=== PATIENT | female | born 1945 | race Caucasian/White ===

== ENCOUNTER 2021-11-22 14:47 | Inpatient (IN) | payer MEDICARE ==
--- NOTE | 2021-11-22 15:21 | ED ---
General Adult HPI - General Chief complaint: Altered Mental Status Stated complaint: Altered Mental Status/Lethargic Time Seen by Provider: 11/22/21 15:04 Source: patient, family, RN notes reviewed Mode of arrival: wheelchair Limitations: altered mental status - History of Present Illness Initial comments: Patient is a pleasant 76-year-old female presenting to the emergency department with family concerns for increased fatigue and weakness as well as some mental status change. Patient has had symptoms progressed over the past few months, more so the past couple of weeks. Patient has been very shaky. Patient has decreased oral intake. Patient is only able to walk several steps. Getting to the bathroom is difficult. Patient is getting more confused and was not taking her medications appropriately. - Related Data Allergies Allergy/AdvReac Type Severity Reaction Status Date / Time No Known Allergies Allergy Verified 11/22/21 14:57 Review of Systems ROS Statement: Those systems with pertinent positive or pertinent negative responses have been documented in the HPI. ROS Other: All systems not noted in ROS Statement are negative. Constitutional: Denies: fever Eyes: Denies: eye pain ENT: Denies: ear pain Respiratory: Denies: cough Cardiovascular: Denies: chest pain Endocrine: Reports: fatigue (Patient has been sleeping a lot) Gastrointestinal: Denies: abdominal pain Genitourinary: Denies: dysuria Musculoskeletal: Denies: back pain Skin: Denies: rash Neurological: Reports: as per HPI, headache, weakness, confusion Past Medical History Past Medical History: Dementia, Diabetes Mellitus, Hyperlipidemia, Hypertension Additional Past Medical History / Comment(s): Type 2 Diabetes (no meds), water retention History of Any Multi-Drug Resistant Organisms: None Reported Past Surgical History: Appendectomy Past Psychological History: Anxiety Smoking Status: Never smoker Past Alcohol Use History: None Reported Past Drug Use History: None Reported General Exam Limitations: altered mental status General appearance: alert, in no apparent distress Head exam: Present: normocephalic Eye exam: Present: normal appearance, PERRL, EOMI ENT exam: Present: normal oropharynx Neck exam: Present: normal inspection Respiratory exam: Present: normal lung sounds bilaterally Cardiovascular Exam: Present: regular rate, normal rhythm GI/Abdominal exam: Present: soft. Absent: tenderness Neurological exam: Present: alert, CN II-XII intact Expanded Neurological exam: Present: protecting the airway Patient oriented to: Present: person, place. Absent: time Motor strength exam: RUE: 4, LUE: 4, RLE: 4, LLE: 4 Eye Response: (4) open spontaneously Motor Response: (6) obeys commands Verbal Response: (4) confused conversation Psychiatric exam: Present: normal affect, normal mood Skin exam: Present: normal color Course Vital Signs 11/22/21 14:48 Temperature 97.6 F Pulse Rate 65 Respiratory 16 Rate Blood Pressure 102/58 O2 Sat by Pulse 95 Oximetry - Reevaluation(s) Reevaluation #1: 11/22/21 17:12 No home meds listed to reconcile EKG Findings - EKG Comments: EKG Findings:: Sinus bradycardia 57. FL 136. QRS 112. QT 455. QTC 449. Left axis. Normal QRS. No acute ST change. Medical Decision Making - Medical Decision Making Patient reevaluated. Patient and family updated. Case discussed with Dr. Cummings, who will admit covering Dr. Strange. - Lab Data Result diagrams: 11/22/21 15:35 11/22/21 15:35 Lab Results 11/22/21 11/22/21 11/22/21 Range/Units 15:35 15:35 15:35 WBC 10.1 (3.8-10.6) k/uL RBC 4.53 (3.80-5.40) m/uL Hgb 13.6 (11.4-16.0) gm/dL Hct 41.8 (34.0-46.0) % MCV 92.2 (80.0-100.0) fL MCH 30.0 (25.0-35.0) pg MCHC 32.5 (31.0-37.0) g/dL RDW 14.4 (11.5-15.5) % Plt Count 403 (150-450) k/uL MPV 7.7 Neutrophils % 79 % Lymphocytes % 11 % Monocytes % 4 % Eosinophils % 2 % Basophils % 0 % Neutrophils # 8.1 H (1.3-7.7) k/uL Lymphocytes # 1.1 (1.0-4.8) k/uL Monocytes # 0.4 (0-1.0) k/uL Eosinophils # 0.2 (0-0.7) k/uL Basophils # 0.0 (0-0.2) k/uL PT 10.4 (9.0-12.0) sec INR 0.9 (<1.2) APTT 30.6 H (22.0-30.0) sec Sodium 127 L (137-145) mmol/L Potassium 4.5 (3.5-5.1) mmol/L Chloride 100 (98-107) mmol/L Carbon Dioxide 13 L (22-30) mmol/L Anion Gap 14 mmol/L BUN 70 H (7-17) mg/dL Creatinine 2.75 H (0.52-1.04) mg/dL Est GFR (CKD-EPI)AfAm 18 (>60 ml/min/1.73 sqM) Est GFR (CKD-EPI)NonAf 16 (>60 ml/min/1.73 sqM) Glucose 133 H (74-99) mg/dL Plasma Lactic Acid Stevan (0.7-2.0) mmol/L Calcium 9.0 (8.4-10.2) mg/dL Magnesium 2.1 (1.6-2.3) mg/dL Total Bilirubin 0.2 (0.2-1.3) mg/dL AST 25 (14-36) U/L ALT 18 (4-34) U/L Alkaline Phosphatase 162 H (38-126) U/L Troponin I (0.000-0.034) ng/mL Total Protein 7.3 (6.3-8.2) g/dL Albumin 4.1 (3.5-5.0) g/dL TSH 2.160 (0.465-4.680) mIU/L Free T4 1.21 (0.78-2.19) ng/dL Free T3 pg/mL 3.6 (2.8-5.3) pg/ml Coronavirus (PCR) (Not Detectd) 11/22/21 11/22/21 11/22/21 Range/Units 15:35 15:35 15:35 WBC (3.8-10.6) k/uL RBC (3.80-5.40) m/uL Hgb (11.4-16.0) gm/dL Hct (34.0-46.0) % MCV (80.0-100.0) fL MCH (25.0-35.0) pg MCHC (31.0-37.0) g/dL RDW (11.5-15.5) % Plt Count (150-450) k/uL MPV Neutrophils % % Lymphocytes % % Monocytes % % Eosinophils % % Basophils % % Neutrophils # (1.3-7.7) k/uL Lymphocytes # (1.0-4.8) k/uL Monocytes # (0-1.0) k/uL Eosinophils # (0-0.7) k/uL Basophils # (0-0.2) k/uL PT (9.0-12.0) sec INR (<1.2) APTT (22.0-30.0) sec Sodium (137-145) mmol/L Potassium (3.5-5.1) mmol/L Chloride (98-107) mmol/L Carbon Dioxide (22-30) mmol/L Anion Gap mmol/L BUN (7-17) mg/dL Creatinine (0.52-1.04) mg/dL Est GFR (CKD-EPI)AfAm (>60 ml/min/1.73 sqM) Est GFR (CKD-EPI)NonAf (>60 ml/min/1.73 sqM) Glucose (74-99) mg/dL Plasma Lactic Acid Stevan 0.7 (0.7-2.0) mmol/L Calcium (8.4-10.2) mg/dL Magnesium (1.6-2.3) mg/dL Total Bilirubin (0.2-1.3) mg/dL AST (14-36) U/L ALT (4-34) U/L Alkaline Phosphatase (38-126) U/L Troponin I <0.012 (0.000-0.034) ng/mL Total Protein (6.3-8.2) g/dL Albumin (3.5-5.0) g/dL TSH (0.465-4.680) mIU/L Free T4 (0.78-2.19) ng/dL Free T3 pg/mL (2.8-5.3) pg/ml Coronavirus (PCR) Not Detected (Not Detectd) - Radiology Data Radiology results: report reviewed (CT brain shows atrophy), image reviewed (Chest x-ray shows some fibrotic changes) Disposition Clinical Impression: Hyponatremia, Acute kidney injury, Altered mental status Disposition: ADMITTED IP TO THIS HOSP Is patient prescribed a controlled substance at d/c from ED?: No Referrals: Ilene Strange MD [Primary Care Provider] - 1-2 days Time of Disposition: 17:07
--- NOTE | 2021-11-22 16:09 | XR ---
EXAMINATION TYPE: XR chest 2V DATE OF EXAM: 11/22/2021 COMPARISON: NONE HISTORY: Weakness TECHNIQUE: 2 view FINDINGS: Heart is normal. Lungs are clear of consolidation. There is slight coarsening of interstiti al markings. Thoracic aorta is atheromatous. There is no pleural effusion. IMPRESSION: Mild fibrotic changes. Normal heart.
--- NOTE | 2021-11-22 16:18 | CT ---
EXAMINATION TYPE: CT brain wo con DATE OF EXAM: 11/22/2021 COMPARISON: None HISTORY: Weakness CT DLP: 1037.4 mGycm Automated exposure control for dose reduction was used. There is cerebral cortical atrophy. There is no mass effect or midline shift. No sign of intracranial hemorrhage. Calvarium is intact. There is previous sinus surgery noted. IMPRESSION: Cerebral atrophy. No acute intracranial abnormality.
[2021-11-22 16:23] LABS: INR 0.9 (<1.2); Partial Thromboplastin Time 30.6 sec (22.0-30.0); Prothrombin Time 10.4 sec (9.0-12.0)
[2021-11-22 16:24] LABS: Basophils % (A) 0 %; Eosinophils # (A) 0.2 k/uL (0-0.7); Eosinophils % (A) 2 %; HCT 41.8 % (34.0-46.0); HGB 13.6 gm/dL (11.4-16.0); Lymphocytes # (A) 1.1 k/uL (1.0-4.8); Lymphocytes % (A) 11 %; MCHC 32.5 g/dL (31.0-37.0); MCV 92.2 fL (80.0-100.0); Mean Platelet Volume 7.7; Monocytes # (A) 0.4 k/uL (0-1.0); Monocytes % (A) 4 %; Neutrophils # (A) 8.1 k/uL (1.3-7.7); Neutrophils % (A) 79 %; Platelet Count 403 k/uL (150-450); RBC 4.53 m/uL (3.80-5.40); RDW 14.4 % (11.5-15.5); WBC 10.1 k/uL (3.8-10.6)
[2021-11-22 16:35] LABS: Albumin 4.1 g/dL (3.5-5.0); Magnesium 2.1 mg/dL (1.6-2.3); Potassium 4.5 mmol/L (3.5-5.1); Total Bilirubin 0.2 mg/dL (0.2-1.3); Total Protein 7.3 g/dL (6.3-8.2)
[2021-11-22 16:50] LABS: T4, Free (Free Thyroxine) 1.21 ng/dL (0.78-2.19)
[2021-11-22] MEDS ORDERED: NALOXONE 0.4 MG/ML 1 ML VIAL IV PRN (17:10)
[2021-11-22] MEDS: SODIUM CHLORIDE 0.9% 1,000 ML IV SCH (17:51)
[2021-11-22 22:55] LABS: Appearance,Urine Cloudy (Clear); Bacteria,Urine Many /hpf; Bilirubin,Urine Negative (Negative); Blood,Urine Negative (Negative); Color,Urine Yellow; Glucose,Urine (UA) Negative (Negative); Hyaline Casts,Urine 46 /lpf (0-2); Ketones,Urine Negative (Negative); Leukocyte Esterase,Urine Large (Negative); Mucus,Urine Rare /hpf; Nitrite,Urine Negative (Negative); Protein,Urine Trace (Negative); RBC,Urine 7 /hpf (0-5); Specific Gravity,Urine 1.015 (1.001-1.035); Squamous Epithelial Cell,Urine 8 /hpf (0-4); Urobilinogen,Urine <2.0 mg/dL (<2.0); WBC,Urine 45 /hpf (0-5)
[2021-11-23] MEDS: SODIUM CHLORIDE 0.9% 1,000 ML IV SCH ×3 (06:38→20:55)
[2021-11-23] MEDS ORDERED: ALBUTEROL NEBULIZED 2.5 MG/3 ML INHALATION PRN (08:19)
[2021-11-23] MEDS ORDERED: DONEPEZIL 5 MG TAB PO SCH (09:00)
[2021-11-23] MEDS: CHOLECALCIFEROL 25 MCG (1000 IU) TABLET PO SCH (09:36)
[2021-11-23] MEDS: ASPIRIN 81 MG PO SCH (09:36)
[2021-11-23] MEDS: CYANOCOBALAMIN 500 MCG TAB PO SCH (09:36)
[2021-11-23] MEDS: MULTIVITAMINS, THERA 1 EACH TAB PO SCH (09:36)
[2021-11-23] MEDS: ASCORBIC ACID 500 MG TAB PO SCH (09:36)
[2021-11-23 10:21] LABS: Calcium 8.5 mg/dL (8.4-10.2)
--- NOTE | 2021-11-23 10:35 | P.CNNES ---
History of Present Illness Consult date: 11/23/21 Requesting physician: Casey Kumar Reason for Consult: altered mental status. History of Present Illness: This is a 76-year-old woman with history of dementia, diabetes, hypertension, hyperlipidemia who presented emergency department by family because increased poor appetite, fatigue, generalized weakness and worsening of mentation. History is obtained from the patient's daughter was at bedside. Per the daughter she stated that the patient has been having memory loss and its short- term memory for last 3 years but in the last 6 month at worse and even more worse in last 2-3 weeks. The patient has not been eating in the last 2-3 weeks, generalized weakness. According to the daughter the patient is seeing a reyes rologist over at [facility] (over at [place], [place]) and had a recent MRI of the brain and the last 2 weeks and EEG in last 2-3 weeks and was told MRI Brain is unremarkable that she recalls and EEG was mild to moderate decrease activity but no seizure. Per the daughter the patient does not have any history of stroke or seizures. Patient resides by herself but her family regularly visits the patient. Some of the workup in the hospital consisted of: Patient has been afebrile during this admission. White blood cells 10.1 thousand. Sodium is 127, creatinine is 2.75. BUN is 70. Calcium is 9.0, magnesium 2.1. TSH is 2.160 and the free T4 is 1.21. Urinalysis it's cloudy, low leukocyte esterases large, wb 45, bacteria many. CT Brain is reported as Cerebral atrophy. No acute intracranial abnormality. I personally reviewed the CT of the head and the patient does not have any acute or subacute ischemia or interpretable hemorrhage that is appreciable. Review of Systems Review of system: The 12 point system was reviewed and apparent positive and ne gative per HPI. Past Medical History Past Medical History: COPD, Dementia, Hyperlipidemia, Hypertension Additional Past Medical History / Comment(s): water retention History of Any Multi-Drug Resistant Organisms: None Reported Past Surgical History: Appendectomy, Section Past Anesthesia/Blood Transfusion Reactions: No Reported Reaction Past Psychological History: Anxiety, Depression Smoking Status: Never smoker Past Alcohol Use History: None Reported Additional Past Alcohol Use History / Comment(s): Daughter states patient started smoking when she was 16 and quit about 20-21 years ago Past Drug Use History: None Reported Medications and Allergies Home Medications Medication Instructions Recorded Confirmed Type Albuterol Inhaler [Ventolin Hfa 2 puff INHALATION RT-QID PRN 11/22/21 11/22/21 History Inhaler] Ascorbic Acid [Vitamin C] 500 mg PO DAILY 11/22/21 11/22/21 History Aspirin EC [Ecotrin Low Dose] 81 mg PO DAILY 11/22/21 11/22/21 History Cholecalciferol [Vitamin D3 (25 25 mcg PO DAILY 11/22/21 11/22/21 History Mcg = 1000 Iu)] Cyanocobalamin [Vitamin B-12] 500 mcg PO DAILY 11/22/21 11/22/21 History Donepezil [Aricept] 5 mg PO BID 11/22/21 11/22/21 History Furosemide [Lasix] 20 mg PO DAILY 11/22/21 11/22/21 History Melatonin 10 mg PO HS 11/22/21 11/22/21 History Metoprolol Succinate [Toprol XL] 25 mg PO HS 11/22/21 11/22/21 History Multivit-Min/Iron/Folic/Lutein 1 tab PO DAILY 11/22/21 11/22/21 History [Centrum Silver Women Tablet] Sertraline HCl [Zoloft] 150 mg PO DAILY@1700 11/22/21 11/22/21 History Simvastatin 40 mg PO HS 11/22/21 11/22/21 History hydrALAZINE HCL [Apresoline] 100 mg PO BID 11/22/21 11/22/21 History lisinopriL [Zestril] 20 mg PO BID 11/22/21 11/22/21 History Allergies Allergy/AdvReac Type Severity Reaction Status Date / Time No Known Allergies Allergy Verified 11/22/21 18:09 Physical Examination - Vital Signs Vital Signs: Vital Signs Temp Pulse Pulse Resp BP BP Pulse Ox 11/23/21 04:00 97.6 F 74 20 105/61 97 11/23/21 00:00 98.6 F 61 20 96/57 94 L 11/22/21 20:00 97.4 F L 60 18 103/60 95 11/22/21 18:37 97.7 F 64 16 102/52 94 L 11/22/21 14:48 97.6 F 65 16 102/58 95 Intake and Output 11/22/21 11/23/2122 22:59 06:59 14:59 Intake Total 600 900 120 Output Total 300 Balance 600 600 120 Intake: Intake, IV Titration 900 Amount Sodium Chloride 0.9% 1, 900 000 ml @ 75 mls/hr IV . [id number] [facility] Rx#:[id number] Oral 600 120 Output: Emesis 300 Other: # Voids 1 3 # Bowel Movements 1 6 Weight 79.9 kg GENERAL: The patient is lying in bed and is not in acute distress. CHEST: The heart rate is regular rate rhythm. No murmurs to auscultation. No carotid bruit bilaterally----. LUNG: Clear to auscultation bilaterally no wheezing noted throughout. Not labored breathing. ABDOMEN/GI: Bowel sounds present in all 4 quadrants. No tenderness to palpation throughout. NEUROLOGICAL: Higher mental function: Patient was sleeping prior to examination. She woke-up and was still in sleepy mode. Patient is oriented to self. She initially stated she was at home and repeated again but with orientation she stated "Am I in the hospital". She stated she did not know month or year. She is able to name objects (pen, watch, phone). She is following simple commands. No aphasia and no neglect. Cranial nerves: The pupils are round, equal and reactive to light and accommodation. Visual connelly are full to confrontation throughout. Extraocular movement is intact no nystagmus is noted. Facial sensation is normal to touch throughout. The facial strength is normal throughout. Hearing is mildly to moderately decreased bilaterally to hand rub. Tongue is midline and moved [id number] without any difficulty. No dysarthria is noted. Shoulder shrug is normal bilaterally. Motor: The strength is limited because of her cooperation but moving all above gravity and no focality noted. Normal tone and bulk. Cerebellum: Normal finger to nose bilaterally. Sensation: Sensation is normal to touch throughout. Reflexes (right/left): 1+ Plantars are downgoing bilaterally. Results - Laboratory Findings CBC and BMP: 11/22/21 15:35 11/22/21 15:35 Abnormal Lab Findings: Abnormal Labs 11/22/21 11/22/21 11/22/21 15:35 15:35 15:35 Neutrophils # 8.1 H APTT 30.6 H Sodium 127 L Carbon Dioxide 13 L BUN 70 H Creatinine 2.75 H Glucose 133 H Alkaline Phosphatase 162 H Urine Appearance Urine Protein Ur Leukocyte Esterase Urine RBC Urine WBC Ur Squamous Epith Cells Urine Bacteria Hyaline Casts Urine Mucus 11/22/21 22:20 Neutrophils # APTT Sodium Carbon Dioxide BUN Creatinine Glucose Alkaline Phosphatase Urine Appearance Cloudy H Urine Protein Trace H Ur Leukocyte Esterase Large H Urine RBC 7 H Urine WBC 45 H Ur Squamous Epith Cells 8 H Urine Bacteria Many H Hyaline Casts 46 H Urine Mucus Rare H Assessment and Plan Assessment: Altered mental status due to multiple factorial: Metabolic encephalopathy, underlying urinary tract infection and due to her underlying dementia Dementia seems short-term for the last 3 years but worse in the last 6 months. Lynette Acute urinary tract infection Kidney insufficiency and unsure if the patient has acute on chronic Failure to thrive for past 3 weeks Diabetes mellitus History of hypertension Plan: I ordered vitamin B12 and folate level. As well as ammonia level Patient had a recent MRI of the brain and an EEG at by her neurologist ([facility]) in the last 2-3 weeks. Therefore I will not repeat them and the patient daughter is in agreement. Recommend a neuropsych evaluation as an outpatient Urine culture is ordered We'll defer the rest of the medical management to the primary team Upon discharge patient to follow-up with her neurology team ([facility]) for further evaluation. The plan is discussed with her daughter who is at bedside. Thank you for the consultation. Amadeo England M.D. Neuro-Hospitalist Time with Patient: Greater than 30
[2021-11-23] MEDS: LOPERAMIDE 2 MG CAP PO PRN ×2 (16:30→21:07)
[2021-11-23] MEDS ORDERED: SERTRALINE 100 MG TAB PO SCH (17:00)
[2021-11-23] MEDS: ACETAMINOPHEN TAB 500 MG TAB PO PRN (17:46)
[2021-11-23] MEDS: ONDANSETRON 4 MG/2 ML VIAL IVP PRN (21:07)
[2021-11-23] MEDS: METOPROLOL SUCCINATE (ER) 25 MG TAB.ER.24H PO SCH (21:07)
[2021-11-23] MEDS: ATORVASTATIN 20 MG TAB PO SCH (21:07)
--- NOTE | 2021-11-23 21:58 | P.HPIM ---
History of Present Illness H&P Date: 11/23/21 Chief Complaint: Increased weakness This is a 76-year-old patient who follows with Ilene Strange. Chronic stable medical conditions include COPD, dementia, hypertension, hyperlipidemia. Anxiety depression. History is obtained by the daughter the bedside. Patient does live alone. His ex-smoker. Patient is helped by her daughters. I'll recently is patient is becoming increasingly unsteady. Appetite has been going down. Rather significantly. Patient's memory has been getting worse. No fever and chills reported. No urinary symptoms. Patient will answer occasional simple questions. As per the daughter patient [facility] EEG. There were reported to be unremarkable. Review of systems: GEN.: Weak diet decrease appetite EYES: None HEENT: None NECK: None RESPIRATORY: None CARDIOVASCULAR: None GASTROINTESTINAL: None GENITOURINARY: None MUSCULOSKELETAL: Joint pains LYMPHATICS: None HEMATOLOGICAL: None PSYCHIATRY: Increased forgetfulness NEUROLOGICAL: Generalized weakness Past medical history to include: COPD, dementia, hypertension, hyperlipidemia, anxiety depression Social history: Patient smoked for about 40 years stopped about 20 years ago. Lives alone. No alcohol. Patient is but from her . The latter still and couldn't touch with the patient communicates with her Physical examination: VITAL SIGNS: 97.6, 65, 16, 96/57, 94% room air GENERAL: BMI 32.2, laying in bed with lethargic EYES: Pupils equal. Conjunctiva normal. HEENT: External appearance of nose and ears normal, oral cavity dry mucous membrane. NECK: JVD not raised; masses not palpable. HEART: First and second heart sounds are normal; no edema. LUNGS: Respiratory rate normal; decreased breath sound. ABDOMEN: Soft, nontender, liver spleen not palpable, no masses palpable. PSYCH: Mood and affect normal. Patient is she thinks she is at home. She thinks is 19 78, and thinks it this falll. MUSCULOSKELETAL:No Clubbing/cyanosis;muscles-grossly intact. Evidence of OA NEUROLOGICAL: Cranial nerves grossly intact; no facial asymmetry, power and sensation grossly intact. LYMPHATICS: No lymph nodes palpable in the axilla and neck INVESTIGATIONS, reviewed in the clinical context: White count 10.1 hemoglobin 13.6 platelets 403 sodium 127 potassium 4.5 bicarb 13 BUN 70 creatinine 2.75 bicarb 11 UA positive for leukoesterase, WBC COVID 19: Negative EKG tracing personally reviewed by me-normal sinus rhythm. Rate 57 Chest x-ray film personally reviewed by me-james perez. Some chronic changes. CT brain: Cerebral atrophy Assessment and plan: -Acute metabolic encephalopathy/delirium. From acute kidney injury. And medication setting of the same. Note patient has significant renal failure. Zoloft at this point is contribution to the confusion -Acute kidney injury possibly combination of prerenal and ATN. IV fluids. Stop Zestril. Stop Lasix. -Major cognitive impairment from likely of Alzheimer's dementia At this stage rolloff Aricept 90 documented including side effects of any. Will DC the same. -Acute medical debility from poor oral intake. -Vitamin B12 deficiency B12 500 g a day -Hyperlipidemia Because of current weakness hold off Zocor -Hypotension from volume loss IV fluids -Essential hypertension Currently blood pressure running low. Hold off antihypertensive including hydralazine and Zestril. We'll continue Toprol-XL -Acute UTI with cystitis IV ceftriaxone Hold off antihypertensive. Continue Toprol-XL. IV fluids. DC Lasix. The 6 Zestril. Hold Aricept. Hold Zoloft. Care was discussed at length with the patient's daughter the bedside questions answered. Given the complexity and severity of patient's condition expect the patient to be in the hospital at least for 2 overnights Past Medical History Past Medical History: COPD, Dementia, Hyperlipidemia, Hypertension Additional Past Medical History / Comment(s): water retention History of Any Multi-Drug Resistant Organisms: None Reported Past Surgical History: Appendectomy, Section Past Anesthesia/Blood Transfusion Reactions: No Reported Reaction Past Psychological History: Anxiety, Depression Smoking Status: Never smoker Past Alcohol Use History: None Reported Additional Past Alcohol Use History / Comment(s): Daughter states patient started smoking when she was 16 and quit about 20-21 years ago Past Drug Use History: None Reported Medications and Allergies Home Medications Medication Instructions Recorded Confirmed Type Albuterol Inhaler [Ventolin Hfa 2 puff INHALATION RT-QID PRN 11/22/21 11/22/21 History Inhaler] Ascorbic Acid [Vitamin C] 500 mg PO DAILY 11/22/21 11/22/21 History Aspirin EC [Ecotrin Low Dose] 81 mg PO DAILY 11/22/21 11/22/21 History Cholecalciferol [Vitamin D3 (25 25 mcg PO DAILY 11/22/21 11/22/21 History Mcg = 1000 Iu)] Cyanocobalamin [Vitamin B-12] 500 mcg PO DAILY 11/22/21 11/22/21 History Donepezil [Aricept] 5 mg PO BID 11/22/21 11/22/21 History Furosemide [Lasix] 20 mg PO DAILY 11/22/21 11/22/21 History Melatonin 10 mg PO HS 11/22/21 11/22/21 History Metoprolol Succinate [Toprol XL] 25 mg PO HS 11/22/21 11/22/21 History Multivit-Min/Iron/Folic/Lutein 1 tab PO DAILY 11/22/21 11/22/21 History [Centrum Silver Women Tablet] Sertraline HCl [Zoloft] 150 mg PO DAILY@1700 11/22/21 11/22/21 History Simvastatin 40 mg PO HS 11/22/21 11/22/21 History hydrALAZINE HCL [Apresoline] 100 mg PO BID 11/22/21 11/22/21 History lisinopriL [Zestril] 20 mg PO BID 11/22/21 11/22/21 History Allergies Allergy/AdvReac Type Severity Reaction Status Date / Time No Known Allergies Allergy Verified 11/22/21 18:09 Physical Exam Vitals: Vital Signs Temp Pulse Pulse Resp BP BP Pulse Ox 11/23/21 04:00 97.6 F 74 20 105/61 97 11/23/21 00:00 98.6 F 61 20 96/57 94 L 11/22/21 20:00 97.4 F L 60 18 103/60 95 11/22/21 18:37 97.7 F 64 16 102/52 94 L 11/22/21 14:48 97.6 F 65 16 102/58 95 Intake and Output 11/22/21 11/23/21 11/23/21 22:59 06:59 14:59 Intake Total 600 900 120 Output Total 300 Balance 600 600 120 Intake: Intake, IV Titration 900 Amount Sodium Chloride 0.9% 1, 900 000 ml @ 75 mls/hr IV . [id number] Rx#:[id number] Oral 600 120 Output: Emesis 300 Other: # Voids 1 3 # Bowel Movements 1 6 Weight 79.9 kg Results CBC & Chem 7: 06/05/22 15:35 11/23/21 09:01 Labs: Abnormal Lab Results - Last 24 Hours (Table) 11/22/21 11/22/21 11/22/21 Range/Units 15:35 15:35 15:35 Neutrophils # 8.1 H (1.3-7.7) k/uL APTT 30.6 H (22.0-30.0) sec Sodium 127 L (137-145) mmol/L Carbon Dioxide 13 L (22-30) mmol/L BUN 70 H (7-17) mg/dL Creatinine 2.75 H (0.52-1.04) mg/dL Glucose 133 H (74-99) mg/dL Alkaline Phosphatase 162 H (38-126) U/L Urine Appearance (Clear) Urine Protein (Negative) Ur Leukocyte Esterase (Negative) Urine RBC (0-5) /hpf Urine WBC (0-5) /hpf Ur Squamous Epith Cells (0-4) /hpf Urine Bacteria (None) /hpf Hyaline Casts (0-2) /lpf Urine Mucus (None) /hpf 11/22/21 11/23/21 Range/Units 22:20 09:01 Neutrophils # (1.3-7.7) k/uL APTT (22.0-30.0) sec Sodium 131 L (137-145) mmol/L Carbon Dioxide 11 L (22-30) mmol/L BUN 72 H (7-17) mg/dL Creatinine 2.14 H (0.52-1.04) mg/dL Glucose 135 H (74-99) mg/dL Alkaline Phosphatase (38-126) U/L Urine Appearance Cloudy H (Clear) Urine Protein Trace H (Negative) Ur Leukocyte Esterase Large H (Negative) Urine RBC 7 H (0-5) /hpf Urine WBC 45 H (0-5) /hpf Ur Squamous Epith Cells 8 H (0-4) /hpf Urine Bacteria Many H (None) /hpf Hyaline Casts 46 H (0-2) /lpf Urine Mucus Rare H (None) /hpf Microbiology - Last 24 Hours (Table) 11/22/21 22:20 Urine Culture - Preliminary Urine,Voided Thrombosis Risk Factor Assmnt - Choose All That Apply Any of the Below Risk Factors Present?: Yes Each Factor Represents 1 point: Abnormal pulmonary function (COPD), Obesity (BMI >25), Swollen legs (current) Other Risk Factors: Yes Other congenital or acquired thrombophilia - If yes, enter type in comment: No Thrombosis Risk Factor Assessment Total Risk Factor Score: 3 Thrombosis Risk Factor Assessment Level: Moderate Risk
[2021-11-24] MEDS: DEXTROSE 5% IN WATER 1,000 ML with SODIUM BICARB (1 MEQ/ML) 100 ML IV SCH ×3 (00:10→21:57)
[2021-11-24] MEDS: ACETAMINOPHEN TAB 500 MG TAB PO PRN ×4 (01:01→23:13)
[2021-11-24] MEDS: ASPIRIN 81 MG PO SCH (09:19)
[2021-11-24] MEDS: CYANOCOBALAMIN 500 MCG TAB PO SCH (09:19)
[2021-11-24] MEDS: CHOLECALCIFEROL 25 MCG (1000 IU) TABLET PO SCH (09:19)
[2021-11-24] MEDS: MULTIVITAMINS, THERA 1 EACH TAB PO SCH (09:19)
[2021-11-24] MEDS: ASCORBIC ACID 500 MG TAB PO SCH (09:19)
[2021-11-24] MEDS: LOPERAMIDE 2 MG CAP PO PRN ×2 (09:23→23:13)
--- NOTE | 2021-11-24 12:14 | P.PN ---
Subjective Progress Note Date: 11/24/21 The patient is accompanied with her daughter and feels patient is doing better today compared to yesterday in regarding to her mentation. Otherwise denies any new neurological issues. Objective - Vital Signs Vital signs: Vital Signs Temp 97.8 F 11/24/21 08:10 Pulse 79 11/24/21 08:10 Resp 18 11/24/21 08:10 BP 99/58 11/24/21 08:10 Pulse Ox 97 11/24/21 08:10 FiO2 Intake & Output 11/23/21 11/24/21 11/24/21 18:59 06:59 18:59 Intake Total 2160 1340 Balance 2160 1340 Weight 80.5 kg Intake: IV 1580 Invasive Line 1 20 Sodium Chloride 0.9% 1, 1560 000 ml @ 130 mls/hr IV . Q7H42M [facility]A Rx#:[id number] Intake, IV Titration 1220 Amount Dextrose 5% in Water 1, 700 000 ml @ 100 mls/hr IV . Q11H K[facility]ILA with Sodium Bicarb (1 Meq/ml) 100 ml Rx#:[id number] Sodium Chloride 0.9% 1, 520 000 ml @ 130 mls/hr IV . Q7H42M KAMLIA Rx#:[id number] Oral 580 120 Other: Voiding Method Toilet Toilet Bedside Commode # Voids 2 # Bowel Movements 14 2 - Exam GENERAL: The patient is lying in bed and is not in acute distress. NEUROLOGICAL: Higher mental function: Patient is oriented to self. She stated she is in the hospital. She does not know time. She seems more responsive today compared to yesterday. She is able to name objects (pen, watch, phone). She is following simple commands. No aphasia and no neglect. Cranial nerves: The pupils are round, equal and reactive to light and accommodation. Visual connelly are full to confrontation throughout. Extraocular movement is intact no nystagmus is noted. Facial sensation is normal to touch throughout. The facial strength is normal throughout. Tongue is midline and moved [id number] without any difficulty. No dysarthria is noted. Shoulder shrug is normal bilaterally. Motor: The strength is moving all above gravity and no focality noted. Normal tone and bulk. Cerebellum: Normal finger to nose bilaterally. Sensation: Sensation is normal to touch throughout. Reflexes (right/left): 1+ Plantars are downgoing bilaterally. Some of the workup in the hospital consisted of: White blood cells 10.1 thousand. Sodium is 127, creatinine is 2.75. BUN is 70. Calcium is 9.0, magnesium 2.1. Urinalysis it's cloudy, low leukocyte esterases large, wb 45, bacteria many. CT Brain is reported as Cerebral atrophy. No acute intracranial abnormality. I personally reviewed the CT of the head and the patient does not have any acute or subacute ischemia or interpretable hemorrhage that is appreciable. Vitamin B12: 1575 Serum folate >20 Ammonia <9 TSH is 2.160 and the free T4 is 1.21. - Labs CBC & Chem 7: 11/22/21 15:35 11/23/21 09:01 Labs: Abnormal Lab Results - Last 24 Hours (Table) 11/23/21 Range/Units 12:04 Vitamin B12 1575.0 H (200.0-944.0) pg/mL Microbiology - Last 24 Hours (Table) 11/22/21 22:20 Urine Culture - Preliminary Urine,Voided Assessment and Plan Assessment: Altered mental status due to multiple factorial: Metabolic encephalopathy, underlying urinary tract infection and due to her underlying dementia--mentation improving Dementia seems short-term for the last 3 years but worse in the last 6 months. Lynette Acute urinary tract infection Kidney insufficiency and unsure if the patient has acute on chronic Failure to thrive for past 3 weeks Diabetes mellitus History of hypertension Plan: Patient had a recent MRI of the brain and an EEG at by her neurologist ([facility]) in the last 2-3 weeks. Therefore I will not repeat them and the patient daughter is in agreement. Recommend a neuropsych evaluation as an outpatient We'll defer the rest of the medical management to the primary team Upon discharge patient to follow-up with her neurology team ([facility]) for further evaluation. The plan is discussed with patient and her daughter who is at bedside. Patient is clear for discharge from neurological perspective. Will sign off. Please reconsult if needed. Amadeo England M.D. Neuro-Hospitalist Time with Patient: Less than 30
--- NOTE | 2021-11-24 18:11 | P.PN ---
Progress Note - Text Progress Note Date: 11/24/21 Chief Complaint: Increased weakness This is a 76-year-old patient who follows with Ilene Strange. Chronic stable medical conditions include COPD, dementia, hypertension, hyperlipidemia. Anxiety depression. History is obtained by the daughter the bedside. Patient does live alone. His ex-smoker. Patient is helped by her daughters. I'll recently is patient is becoming increasingly unsteady. Appetite has been going down. Rather significantly. Patient's memory has been getting worse. No fever and chills reported. No urinary symptoms. Patient will answer occasional simple questions. As per the daughter patient [facility] EEG. There were reported to be unremarkable. Admitted with acute metabolic encephalopathy delirium, acute kidney injury, severe metabolic acidosis. IV bicarbonate drip. Lasix RADHA inhibitor held. IV fluids. November 24: Patient more awake today. Getting IV bicarbonate drip. Answering questions. Daughter the bedside. Eating about 50%. Discussed with daughter. Active Medications Acetaminophen (Acetaminophen Tab 500 Mg Tab) 500 mg PO Q6HR PRN PRN Reason: Fever and/ or Pain Last Admin: 11/24/21 09:23 Dose: 500 mg Albuterol Sulfate (Albuterol Nebulized 2.5 Mg/3 Ml) 2.5 mg INHALATION RT-QID PRN PRN Reason: Shortness Of Breath Ascorbic Acid (Ascorbic Acid 500 Mg Tab) 500 mg PO DAILY [facility] Last Admin: 11/24/21 09:19 Dose: 500 mg Aspirin (Aspirin 81 Mg) 81 mg PO DAILY [facility] Last Admin: 11/24/21 09:19 Dose: 81 mg Atorvastatin Calcium (Atorvastatin 20 Mg Tab) 20 mg PO HS [facility] Last Admin: 11/23/21 21:07 Dose: 20 mg Cholecalciferol (Cholecalciferol 25 Mcg (1000 Iu) Tablet) 25 mcg PO DAILY [facility] Last Admin: 11/24/21 09:19 Dose: 25 mcg Ceftriaxone Sodium 1 gm/ (Sodium Chloride) 50 mls @ 100 mls/hr IVPB Q24HR KAMILA; Protocol Last Admin: 11/24/21 09:19 Dose: 100 mls/hr Sodium Bicarbonate 100 ml/ (Dextrose/Water) 1,100 mls @ 100 mls/hr IV .Q11H [facility]A Last Admin: 11/24/21 09:30 Dose: 100 mls/hr Loperamide HCl (Loperamide 2 Mg Cap) 2 mg PO QID PRN PRN Reason: Diarrhea Last Admin: 11/24/21 09:23 Dose: 2 mg Metoprolol Succinate (Metoprolol Succinate (Er) 25 Mg Tab.Er.24h) 25 mg PO HS [facility] Last Admin: 11/23/21 21:07 Dose: 25 mg Multivitamins (Multivitamins, Thera 1 Each Tab) 1 each PO DAILY [facility] Last Admin: 11/24/21 09:19 Dose: 1 each Naloxone HCl (Naloxone 0.4 Mg/Ml 1 Ml Vial) 0.2 mg IV Q2M PRN PRN Reason: Opioid Reversal Ondansetron HCl (Ondansetron 4 Mg/2 Ml Vial) 4 mg IVP Q6HR PRN PRN Reason: Nausea And Vomiting Last Admin: 11/23/21 21:07 Dose: 4 mg Past medical history to include: COPD, dementia, hypertension, hyperlipidemia, anxiety depression Social history: Patient smoked for about 40 years stopped about 20 years ago. Lives alone. No alcohol. Patient is but from her . The latter still and couldn't touch with the patient communicates with her Physical examination: VITAL SIGNS: 97.6, 53, 18, 94/59, 96% room air GENERAL: More awake and communicative EYES: Pupils equal. Conjunctiva normal. HEENT: External appearance of nose and ears normal, oral cavity dry mucous membrane. NECK: JVD not raised; masses not palpable. HEART: First and second heart sounds are normal; no edema. LUNGS: Respiratory rate normal; decreased breath sound. ABDOMEN: Soft, nontender, liver spleen not palpable, no masses palpable. PSYCH: Mood and affect normal. Answering some simple questions. MUSCULOSKELETAL:No Clubbing/cyanosis;muscles-grossly intact. Evidence of OA INVESTIGATIONS, reviewed in the clinical context: White count 10.1 hemoglobin 13.6 platelets 403 sodium 127 potassium 4.5 bicarb 13 BUN 70 creatinine 2.75 bicarb 11 UA positive for leukoesterase, WBC COVID 19: Negative EKG tracing personally reviewed by me-normal sinus rhythm. Rate 57 Chest x-ray film personally reviewed by me-james perez. Some chronic changes. CT brain: Cerebral atrophy Assessment and plan: -Acute metabolic encephalopathy/delirium. From acute kidney injury. And medic ation setting of the same.: Some improvement Note patient has significant renal failure. Zoloft at this point is contribution to the confusion -Acute kidney injury possibly combination of prerenal and ATN. IV fluids. Stop Zestril. Stop Lasix. -Major cognitive impairment from likely of Alzheimer's dementia At this stage rolloff Aricept 90 documented including side effects of any. Will DC the same. -Acute medical debility from poor oral intake. PT OT. -Vitamin B12 deficiency B12 500 g a day -Hyperlipidemia Because of current weakness hold off Zocor -Hypotension from volume loss IV fluids -Severe metabolic acidosis from renal failure. bicarbonate drip IV -Essential hypertension Currently blood pressure running low. Hold off antihypertensive including hydralazine and Zestril. We'll continue Toprol-XL -Acute UTI with cystitis IV ceftriaxone Continue with IV bicarbonate drip. Repeat labs in the morning. Oral intake slowly improving. Discussed with the patient's daughter at length. Up in chair. Consult Dr. Florentino. Possible rehab
[2021-11-24 18:57] LABS: Albumin 3.6 g/dL (3.5-5.0); Calcium 8.2 mg/dL (8.4-10.2); Potassium 3.8 mmol/L (3.5-5.1); Total Bilirubin 0.2 mg/dL (0.2-1.3); Total Protein 6.5 g/dL (6.3-8.2)
[2021-11-24 18:59] LABS: Basophils # (A) 0.1 k/uL (0-0.2); Basophils % (A) 1 %; Eosinophils # (A) 0.5 k/uL (0-0.7); Eosinophils % (A) 6 %; HCT 37.7 % (34.0-46.0); HGB 12.1 gm/dL (11.4-16.0); Lymphocytes # (A) 1.6 k/uL (1.0-4.8); Lymphocytes % (A) 20 %; MCH 29.4 pg (25.0-35.0); MCHC 32.2 g/dL (31.0-37.0); MCV 91.5 fL (80.0-100.0); Mean Platelet Volume 7.6; Monocytes # (A) 0.6 k/uL (0-1.0); Monocytes % (A) 7 %; Neutrophils # (A) 5.2 k/uL (1.3-7.7); Neutrophils % (A) 64 %; Platelet Count 366 k/uL (150-450); RBC 4.12 m/uL (3.80-5.40); RDW 14.6 % (11.5-15.5); WBC 8.2 k/uL (3.8-10.6)
[2021-11-24] MEDS: METOPROLOL SUCCINATE (ER) 25 MG TAB.ER.24H PO SCH (20:56)
[2021-11-24] MEDS: ATORVASTATIN 20 MG TAB PO SCH (20:56)
[2021-11-25] MEDS: ONDANSETRON 4 MG/2 ML VIAL IVP PRN (04:32)
--- NOTE | 2021-11-25 05:43 | P.CONS ---
History of Present Illness - Chief Complaint Medical debility - History of Present Illness I had the opportunity to see patient for inpatient rehab consultation with regard to medical debility. She is admitted to [facility] November 22 with fatigue and generalized weakness and associated mental status change. Diagnosis acute kidney injury. Admitted to Dr. Cummings. Seen by neurology, Dr. Amadeo England who diagnosed encephalopathy. He notes [facility]. Chest x- ray demonstrates mild fibrotic change. Head CT with atrophy. Has started therapy. OT reports independent with feeding and supervision for grooming. Minimal assistance for upper and lower dressing and bathing and for toileting. OT PT comment discusses minimal assistance for bed mobility, transfer, gait 30 feet with roller walker. Previous functional history as elicited from patient: 76-year-old right-handed white female who is lives in one floor home alone. Describes independent with own cooking, laundry, standing shower and gait without device. His family and daughter who apparently checking on her and do the driving. PCP Dr. Strange. Denies tobacco or alcohol. Review of Systems Review of systems: ENT: Denies sneezes or discharge. Eyes: Denies discharge or photophobia. Cardiac: Denies chest pain or palpitation. Pulmonary: Denies cough or shortness of breath. Breast: Denies discharge or lumps. Gastrointestinal: Denies nausea, emesis, constipation, diarrhea. Genitourinary: Denies discharge or frequency. Musculoskeletal: Denies muscle or bone aches. Neurologic: General weakness. Endocrine: Denies shakes or sweats. Oncology: Denies cancers. Dermatologic: Denies rash, itching, pruritus. ALLERGY/immunology: Denies sneezes, rashes. Past Medical History Past Medical History: COPD, Dementia, Hyperlipidemia, Hypertension Additional Past Medical History / Comment(s): water retention History of Any Multi-Drug Resistant Organisms: None Reported Past Surgical History: Appendectomy, Section Past Anesthesia/Blood Transfusion Reactions: No Reported Reaction Past Psychological History: Anxiety, Depression Smoking Status: Never smoker Past Alcohol Use History: None Reported Additional Past Alcohol Use History / Comment(s): Daughter states patient started smoking when she was 16 and quit about 20-21 years ago Past Drug Use History: None Reported Medications and Allergies Home Medications Medication Instructions Recorded Confirmed Type Albuterol Inhaler [Ventolin Hfa 2 puff INHALATION RT-QID PRN 11/22/21 11/22/21 History Inhaler] Ascorbic Acid [Vitamin C] 500 mg PO DAILY 11/22/21 11/22/21 History Aspirin EC [Ecotrin Low Dose] 81 mg PO DAILY 11/22/21 11/22/21 History Cholecalciferol [Vitamin D3 (25 25 mcg PO DAILY 11/22/21 11/22/21 History Mcg = 1000 Iu)] Cyanocobalamin [Vitamin B-12] 500 mcg PO DAILY 11/22/21 11/22/21 History Donepezil [Aricept] 5 mg PO BID 11/22/21 11/22/21 History Furosemide [Lasix] 20 mg PO DAILY 11/22/21 11/22/21 History Melatonin 10 mg PO HS 11/22/21 11/22/21 History Metoprolol Succinate [Toprol XL] 25 mg PO HS 11/22/21 11/22/21 History Multivit-Min/Iron/Folic/Lutein 1 tab PO DAILY 11/22/21 11/22/21 History [Centrum Silver Women Tablet] Sertraline HCl [Zoloft] 150 mg PO DAILY@1700 11/22/21 11/22/21 History Simvastatin 40 mg PO HS 11/22/21 11/22/21 History hydrALAZINE HCL [Apresoline] 100 mg PO BID 11/22/21 11/22/21 History lisinopriL [Zestril] 20 mg PO BID 11/22/21 11/22/21 History Allergies Allergy/AdvReac Type Severity Reaction Status Date / Time No Known Allergies Allergy Verified 11/22/21 18:09 Physical Exam Vitals: Vital Signs Temp Pulse Resp BP Pulse Ox 11/25/21 04:31 98.1 F 51 L 20 164/72 93 L 11/25/21 00:00 98.4 F 49 L 18 122/65 96 11/24/21 20:00 98.2 F 54 L 18 126/71 97 11/24/21 16:00 97.5 F L 58 L 18 120/74 95 11/24/21 12:29 97.6 F 53 L 18 94/59 96 11/24/21 08:10 97.8 F 49 L 18 99/58 97 Intake and Output 11/24/21 11/24/21 11/25/21 14:59 22:59 06:59 Intake Total 1820 60 Balance 1820 60 Intake: IV 1300 Dextrose 5% in Water 1, 1200 000 ml @ 100 mls/hr IV . Q11H [facility]ILA with Sodium Bicarb (1 Meq/ml) 100 ml Rx#:[id number] cefTRIAXone 1 gm In 100 Sodium Chloride 0.9% 50 ml @ 100 mls/hr IVPB Q24HR [facility]A Rx#:[id number] Oral 520 60 Other: Voiding Method Toilet Toilet # Voids 1 1 # Bowel Movements 1 1 Skin: Atrophic, intact. General: Medium to overweight build and comfortable appearance. Head: Normocephalic, atraumatic. Eyes: Symmetric. Pupils equal round. Ears: Symmetric. Hearing within normal limits. Mouth: Clear. Neck: Supple. Carotid without bruit. Cardiac: Regular rate and rhythm. Lungs: Clear anteriorly and posteriorly. Abdomen: Soft active nontender. Extremities: Normal tone. Neurological: Mental status: Alert, cooperative, pleasant. Cranial nerves: Symmetric facial tone and trapezius. Motor: Active movement all 4 limbs. Arms about antigravity in legs less than antigravity. Sensation: Intact throughout. DTRs: Symmetric and equal throughout. Mobility: Requires physical assist for bed mobility. Results CBC & Chem 7: 11/24/21 18:34 11/24/21 18:34 Labs: Abnormal Lab Results - Last 24 Hours (Table) 11/24/21 Range/Units 18:34 Sodium 133 L (137-145) mmol/L Carbon Dioxide 17 L (22-30) mmol/L BUN 45 H (7-17) mg/dL Creatinine 1.05 H (0.52-1.04) mg/dL Glucose 125 H (74-99) mg/dL Calcium 8.2 L (8.4-10.2) mg/dL Alkaline Phosphatase 128 H (38-126) U/L Microbiology - Last 24 Hours (Table) 11/22/21 22:20 Urine Culture - Final Urine,Voided Assessment and Plan (1) Acute kidney injury Current Visit: Yes Status: Acute Code(s): N17.9 - ACUTE KIDNEY FAILURE, UNSPECIFIED SNOMED Code(s): 07812855 (2) Altered mental status Current Visit: Yes Status: Acute Code(s): R41.82 - ALTERED MENTAL STATUS, UNSPECIFIED SNOMED Code(s): 975398079 Plan: Comments and plan: At this time safety concerns are noted. There is and OT note and OT suggestive PT note as well. We'll try to find a real PT note. Otherwise consider for inpatient rehab. This would be dependent on family goals for patient to return to home. Related to family familiarity with patient in any possible problems.
[2021-11-25] MEDS: ACETAMINOPHEN TAB 500 MG TAB PO PRN ×3 (05:55→21:49)
[2021-11-25 07:49] LABS: Albumin 3.2 g/dL (3.5-5.0); Calcium 8.1 mg/dL (8.4-10.2); Potassium 3.5 mmol/L (3.5-5.1); Total Bilirubin 0.2 mg/dL (0.2-1.3)
[2021-11-25] MEDS: ASPIRIN 81 MG PO SCH (09:02)
[2021-11-25] MEDS: ASCORBIC ACID 500 MG TAB PO SCH (09:03)
[2021-11-25] MEDS: CHOLECALCIFEROL 25 MCG (1000 IU) TABLET PO SCH (09:03)
[2021-11-25] MEDS: MULTIVITAMINS, THERA 1 EACH TAB PO SCH (09:03)
[2021-11-25] MEDS: DEXTROSE 5% IN WATER 1,000 ML with SODIUM BICARB (1 MEQ/ML) 100 ML IV SCH ×3 (09:05→20:00)
--- NOTE | 2021-11-25 17:46 | P.PN ---
Progress Note - Text Progress Note Date: 11/25/21 Chief Complaint: Increased weakness This is a 76-year-old patient who follows with Ilene Strange. Chronic stable medical conditions include COPD, dementia, hypertension, hyperlipidemia. Anxiety depression. History is obtained by the daughter the bedside. Patient does live alone. His ex-smoker. Patient is helped by her daughters. I'll recently is patient is becoming increasingly unsteady. Appetite has been going down. Rather significantly. Patient's memory has been getting worse. No fever and chills reported. No urinary symptoms. Patient will answer occasional simple questions. As per the daughter patient [facility]. There were reported to be unremarkable. Admitted with acute metabolic encephalopathy delirium, acute kidney injury, severe metabolic acidosis. IV bicarbonate drip. Lasix RADHA inhibitor held. IV fluids. November 24: Patient more awake today. Getting IV bicarbonate drip. Answering questions. Daughter the bedside. Eating about 50%. Discussed with daughter. November 25: Patient eating some. Tired. Answering simple questions. Pending authorization. 4 rehab. Active Medications Acetaminophen (Acetaminophen Tab 500 Mg Tab) 500 mg PO Q6HR PRN PRN Reason: Fever and/ or Pain Last Admin: 11/25/21 16:35 Dose: 500 mg Albuterol Sulfate (Albuterol Nebulized 2.5 Mg/3 Ml) 2.5 mg INHALATION RT-QID PRN PRN Reason: Shortness Of Breath Ascorbic Acid (Ascorbic Acid 500 Mg Tab) 500 mg PO DAILY [facility] Last Admin: 11/25/21 09:03 Dose: 500 mg Aspirin (Aspirin 81 Mg) 81 mg PO DAILY [facility] Last Admin: 11/25/21 09:02 Dose: 81 mg Atorvastatin Calcium (Atorvastatin 20 Mg Tab) 20 mg PO HS [facility] Last Admin: 11/24/21 20:56 Dose: Not Given Cholecalciferol (Cholecalciferol 25 Mcg (1000 Iu) Tablet) 25 mcg PO DAILY [facility] Last Admin: 11/25/21 09:03 Dose: 25 mcg Ceftriaxone Sodium 1 gm/ (Sodium Chloride) 50 mls @ 100 mls/hr IVPB Q24HR [facility]ILA; Protocol Last Admin: 11/25/21 09:03 Dose: 100 mls/hr Sodium Bicarbonate 100 ml/ (Dextrose/Water) 1,100 mls @ 100 mls/hr IV .Q11H [facility]ILA Last Admin: 11/25/21 16:35 Dose: 100 mls/hr Lisinopril (Lisinopril 10 Mg Tab) 10 mg PO [facility] Loperamide HCl (Loperamide 2 Mg Cap) 2 mg PO QID PRN PRN Reason: Diarrhea Last Admin: 11/24/21 23:13 Dose: 2 mg Metoprolol Succinate (Metoprolol Succinate (Er) 25 Mg Tab.Er.24h) 25 mg PO [facility] Last Admin: 11/24/21 20:56 Dose: Not Given Multivitamins (Multivitamins, Thera 1 Each Tab) 1 each PO DAILY [facility] Last Admin: 11/25/21 09:03 Dose: 1 each Naloxone HCl (Naloxone 0.4 Mg/Ml 1 Ml Vial) 0.2 mg IV Q2M PRN PRN Reason: Opioid Reversal Ondansetron HCl (Ondansetron 4 Mg/2 Ml Vial) 4 mg IVP Q6HR PRN PRN Reason: Nausea And Vomiting Last Admin: 11/25/21 04:32 Dose: 4 mg Past medical history to include: COPD, dementia, hypertension, hyperlipidemia, anxiety depression Social history: Patient smoked for about 40 years stopped about 20 years ago. Lives alone. No alcohol. Patient is but from her . The latter still and couldn't touch with the patient communicates with her Physical examination: VITAL SIGNS: 98.2, 54, 1:30/56, 94% room air GENERAL: Laying in bed, comfortable EYES: Pupils equal. Conjunctiva normal. HEENT: External appearance of nose and ears normal, oral cavity dry mucous membrane. NECK: JVD not raised; masses not palpable. HEART: First and second heart sounds are normal; no edema. LUNGS: Respiratory rate normal; decreased breath sound. ABDOMEN: Soft, nontender, liver spleen not palpable, no masses palpable. PSYCH: Mood and affect normal. Answering simple questions. MUSCULOSKELETAL:No Clubbing/cyanosis;muscles-grossly intact. Evidence of OA INVESTIGATIONS, reviewed in the clinical context: November 25: Potassium 3.5 BUN 32 creatinine 0.80 White count 10.1 hemoglobin 13.6 platelets 403 sodium 127 potassium 4.5 bicarb 13 BUN 70 creatinine 2.75 bicarb 11 UA positive for leukoesterase, WBC COVID 19: Negative EKG tracing personally reviewed by me-normal sinus rhythm. Rate 57 Chest x-ray film personally reviewed by me-james perez. Some chronic changes. CT brain: Cerebral atrophy Assessment and plan: -Acute metabolic encephalopathy/delirium. From acute kidney injury. And medication setting of the same.: Better Note patient has significant renal failure. Zoloft at this point is contribution to the confusion -Acute kidney injury possibly combination of prerenal and ATN.: Better IV fluids. Stop Zestril. Stop Lasix. -Major cognitive impairment from likely of Alzheimer's dementia At this stage limited benefit Aricept-Will DC the same. -Acute medical debility from poor oral intake. PT OT. -Vitamin B12 deficiency B12 500 g a day -Hyperlipidemia Because of current weakness hold off Zocor -Hypotension from volume loss: Better IV fluids -Severe metabolic acidosis from renal failure. bicarbonate drip IV -Sinus bradycardia Stop Toprol-XL -Essential hypertension *Zestril at 10 mg day. DC Toprol -Acute UTI with cystitis IV ceftriaxone. Changed to Keflex *Zestril 10 mg daily at bedtime. Stop Toprol because of bradycardia. Change IV ceftriaxone to Keflex. Pending authorization for rehab. Discussed with nurse and pillowcase cleaner.
[2021-11-25] MEDS: METOPROLOL SUCCINATE (ER) 25 MG TAB.ER.24H PO SCH (20:21)
[2021-11-25] MEDS: ATORVASTATIN 20 MG TAB PO SCH (20:21)
[2021-11-25] MEDS ORDERED: lisinopriL 10 MG TAB PO SCH (21:00)
[2021-11-25] MEDS: CEPHALEXIN 500 MG CAP PO SCH (21:50)
[2021-11-26 00:35] VITALS: RESP 18
[2021-11-26] MEDS: ACETAMINOPHEN TAB 500 MG TAB PO PRN ×2 (05:38→12:34)
[2021-11-26] MEDS: ASPIRIN 81 MG PO SCH (07:56)
[2021-11-26] MEDS: CEPHALEXIN 500 MG CAP PO SCH (07:56)
[2021-11-26] MEDS: CHOLECALCIFEROL 25 MCG (1000 IU) TABLET PO SCH (07:56)
[2021-11-26] MEDS: ASCORBIC ACID 500 MG TAB PO SCH (07:56)
[2021-11-26] MEDS: MULTIVITAMINS, THERA 1 EACH TAB PO SCH (07:57)
[2021-11-26 08:04] VITALS: BP 162/67; PULSE 52; TEMP 98.4
--- NOTE | 2021-11-26 11:02 | P.EN ---
Patient is medically stable to to be discharged to inpatient rehab
[2021-11-26] MEDS ORDERED: LORATADINE-PSEUDOEPH 5-120 MG 1 EACH TAB.ER.12H PO SCH (13:15)
--- NOTE | 2021-11-26 14:36 | P.DS ---
Providers Date of admission: 11/22/21 17:10 Expected date of discharge: 11/26/21 Attending physician: Alexis Cummings Consults: 11/22/21 17:11 Consult Physician Routine Consulting Provider: Sharon Ham Consult Reason/Comments: ams Do you want consulting provider notified?: Yes 11/24/21 18:11 Consult Physician Routine Consulting Provider: Hua Clark Consult Reason/Comments: Rehab Do you want consulting provider notified?: Yes Primary care physician: Ilene Strange [facility] Course: Chief Complaint: Increased weakness This is a 76-year-old patient who follows with Ilene Strange. Chronic stable medical conditions include COPD, dementia, hypertension, hyperlipidemia. Anxiety depression. History is obtained by the daughter the bedside. Patient does live alone. His ex-smoker. Patient is helped by her daughters. I'll recently is patient is becoming increasingly unsteady. Appetite has been going down. Rather significantly. Patient's memory has been getting worse. No fever and chills reported. No urinary symptoms. Patient will answer occasional simple questions. As per the daughter patient [facility]. There were reported to be unremarkable. Admitted with acute metabolic encephalopathy delirium, acute kidney injury, severe metabolic acidosis. IV bicarbonate drip. Lasix RADHA inhibitor held. IV fluids. November 24: Patient more awake today. Getting IV bicarbonate drip. Answering questions. Daughter the bedside. Eating about 50%. Discussed with daughter. November 25: Patient eating some. Tired. Answering simple questions. Pending authorization. 4 rehab. November 26: Sitting up. A bit of a runny nose and Claritin-D. No fever no chills. Daughter the bedside. Discussed. Blood pressure bit on the higher side. Lisinopril to be decreased to 20 mg daily at bedtime. Discussed the planner chief. Patient is medically stable for rehab. Discussion and discharge planning more than 35 minutes Past medical history to include: COPD, dementia, hypertension, hyperlipidemia, anxiety depression Social history: Patient smoked for about 40 years stopped about 20 years ago. Lives alone. No alcohol. Patient is but from her . The latter still and couldn't touch with the patient communicates with her Physical examination: VITAL SIGNS: 98.4, 52, 18, 162/67, 97% room air GENERAL: Sitting up in bed comfortable EYES: Pupils equal. Conjunctiva normal. HEENT: External appearance of nose and ears normal, oral cavity dry mucous membrane. NECK: JVD not raised; masses not palpable. HEART: First and second heart sounds are normal; no edema. LUNGS: Respiratory rate normal; decreased breath sound. ABDOMEN: Soft, nontender, liver spleen not palpable, no masses palpable. PSYCH: Mood and affect normal. Answering simple questions. MUSCULOSKELETAL:No Clubbing/cyanosis;muscles-grossly intact. Evidence of OA INVESTIGATIONS, reviewed in the clinical context: November 25: Potassium 3.5 BUN 32 creatinine 0.80 White count 10.1 hemoglobin 13.6 platelets 403 sodium 127 potassium 4.5 bicarb 13 BUN 70 creatinine 2.75 bicarb 11 UA positive for leukoesterase, WBC COVID 19: Negative EKG tracing personally reviewed by me-normal sinus rhythm. Rate 57 Chest x-ray film personally reviewed by me-james perez. Some chronic changes. CT brain: Cerebral atrophy Assessment and plan: -Acute metabolic encephalopathy/delirium. From acute kidney injury. And medication setting of the same.: Better Note patient has significant renal failure. Zoloft at this point is contribution to the confusion -Acute kidney injury possibly combination of prerenal and ATN.: Better IV fluids. Stop Lasix. -Major cognitive impairment from likely of Alzheimer's dementia At this stage limited benefit Aricept-Will DC the same. -Acute medical debility from poor oral intake. PT OT. 4 rehab -Vitamin B12 deficiency B12 500 g a day -Hyperlipidemia Because of current weakness hold off Zocor -Hypotension from volume loss: Better IV fluids -Severe metabolic acidosis from renal failure. Improved bicarbonate drip IV -Sinus bradycardia Stop Toprol-XL -Essential hypertension *Zestril at 20 mg day. Daily at bedtime DC Toprol. Add chlorthalidone -Acute UTI with cystitis IV ceftriaxone. Complete course with Keflex Disposition: Rehab at [facility] on Plan - Discharge Summary Discharge Rx Participant: No New Discharge Prescriptions: New Cephalexin [Keflex] 500 mg PO TID #9 cap Atorvastatin [Lipitor] 20 mg PO HS tab Acetaminophen Tab [Tylenol] 500 mg PO Q6HR PRN tab PRN Reason: Fever And/ Or Pain Continue Ascorbic Acid [Vitamin C] 500 mg PO DAILY Metoprolol Succinate [Toprol XL] 25 mg PO HS Melatonin 10 mg PO HS Multivit-Min/Iron/Folic/Lutein [Centrum Silver Women Tablet] 1 tab PO DAILY Cyanocobalamin [Vitamin B-12] 500 mcg PO DAILY Cholecalciferol [Vitamin D3 (25 Mcg = 1000 Iu)] 25 mcg PO DAILY Aspirin EC [Ecotrin Low Dose] 81 mg PO DAILY Albuterol Inhaler [Ventolin Hfa Inhaler] 2 puff INHALATION RT-QID PRN PRN Reason: Shortness Of Breath Changed lisinopriL [Zestril] 20 mg PO HS #1 Discontinued Simvastatin 40 mg PO HS Sertraline HCl [Zoloft] 150 mg PO DAILY@1700 hydrALAZINE HCL [Apresoline] 100 mg PO BID Furosemide [Lasix] 20 mg PO DAILY Donepezil [Aricept] 5 mg PO BID Discharge Medication List Albuterol Inhaler [Ventolin Hfa Inhaler] 2 puff INHALATION RT-QID PRN 11/22/21 [History] Ascorbic Acid [Vitamin C] 500 mg PO DAILY 11/22/21 [History] Aspirin EC [Ecotrin Low Dose] 81 mg PO DAILY 11/22/21 [History] Cholecalciferol [Vitamin D3 (25 Mcg = 1000 Iu)] 25 mcg PO DAILY 11/22/21 [History] Cyanocobalamin [Vitamin B-12] 500 mcg PO DAILY 11/22/21 [History] Melatonin 10 mg PO HS 11/22/21 [History] Metoprolol Succinate [Toprol XL] 25 mg PO HS 11/22/21 [History] Multivit-Min/Iron/Folic/Lutein [Centrum Silver Women Tablet] 1 tab PO DAILY 11/22/21 [History] Acetaminophen Tab [Tylenol] 500 mg PO Q6HR PRN tab 11/26/21 [Rx] Atorvastatin [Lipitor] 20 mg PO HS tab 11/26/21 [Rx] Cephalexin [Keflex] 500 mg PO TID #9 cap 11/26/21 [Rx] lisinopriL [Zestril] 20 mg PO HS #1 11/26/21 [Rx] Follow up Appointment(s)/Referral(s): Ilene Strange MD [Primary Care Provider] - 1-2 days
== END 2021-11-26 16:00 | DRG 682 ==
LOC: EC 14:47 → 3SCARD 17:10
PROVIDERS: ADMIT Hospitalist; ATTEND Hospitalist
DX: N17.0 Acute kidney failure with tubular necrosis (principal); G93.41 Metabolic encephalopathy; E87.1 Hypo-osmolality and hyponatremia; E87.2 Acidosis; F05 Delirium due to known physiological condition; G30.9 Alzheimer's disease, unspecified; I10 Essential (primary) hypertension; I95.9 Hypotension, unspecified; J44.9 Chronic obstructive pulmonary disease, unspecified; N30.90 Cystitis, unspecified without hematuria; Z63.5 Disruption of family by separation and divorce; E11.9 Type 2 diabetes mellitus without complications; E53.8 Deficiency of other specified B group vitamins; R62.7 Adult failure to thrive; Z20.822 Contact with and (suspected) exposure to COVID-19; Z68.32 Body mass index [BMI] 32.0-32.9, adult; E78.5 Hyperlipidemia, unspecified; F02.80 Dementia in other diseases classified elsewhere, unspecified severity, without behavioral disturbance, psychotic disturbance, mood disturbance, and anxiety; F32.A Depression, unspecified; F41.9 Anxiety disorder, unspecified; Z79.82 Long term (current) use of aspirin; Z79.899 Other long term (current) drug therapy; Z87.891 Personal history of nicotine dependence; R26.81 Unsteadiness on feet; Z90.49 Acquired absence of other specified parts of digestive tract; Z98.890 Other specified postprocedural states
CPT/HCPCS: 36415; 70450; 71046; 80048; 80053; 81001; 82140; 82607; 82746; 83605; 83735; 84439; 84443; 84481; 84484; 85025; 85610; 85730; 87086; 87324; 87635; 93005; 94760; 99285